=== PATIENT | male | born 1970 | race Caucasian/White ===

== ENCOUNTER 2017-06-25 15:24 | Emergency (ER) | payer SELFPAY ==
[~2017-06-25] VITALS: Ht 175.3 cm; Wt 83.9 kg
[2017-06-25] MEDS ORDERED: SODIUM CHLORIDE 0.9% 1,000 ML IV ONE (15:31)
[2017-06-25] MEDS ORDERED: ONDANSETRON HCL 4 MG/2 ML VIAL IV ONE (15:45)
[2017-06-25] MEDS ORDERED: MORPHINE SULF INJ 2 MG/ML SYRINGE 1ML IV ONE (15:45)
[2017-06-25 16:08] LABS: Basophils # (auto) 0.1 uL; Basophils % (auto) 0.8 % (0.0-2.0); CONDITION Y; Eosinophils # (auto) 0.4 uL; Eosinophils % (auto) 3.9 % (0.0-7.0); Hematocrit 43.7 % (41.0-53.0); Hemoglobin 15.2 g/dL (13.5-17.5); Lymphocytes # (auto) 3.9 uL; Lymphocytes % (auto) 41.8 % (10.0-50.0); Mean Corpuscular Hemoglobin 31.6 pg (28.0-32.0); Mean Corpuscular Hgb Conc. 34.8 g/dL (32.0-36.0); Mean Corpuscular Volume 90.7 fL (80.0-100.0); Mean Platelet Volume 7.6 fL (7.4-10.4); Monocytes # (auto) 0.5 uL; Monocytes % (auto) 5.7 % (0.0-12.0); Neutrophils # (auto) 4.5 uL; Neutrophils % (auto) 47.8 % (37.0-80.0); Platelet Count (auto) 338 10^3/uL (140-450); Red Cell Distribution Width 12.8 % (11.6-16.0); White Blood Cell 9.4 10^3/uL (4.4-10.8)
[2017-06-25] MEDS ORDERED: LIDOCAINE 1% HCL (LOCAL ANESTH.) INJ 20ML MDV ID ONE (16:15)
[2017-06-25 16:21] LABS: INR 1.19 (0.9-1.15); Partial Thromboplastin Time 30.5 sec (22.64-33.71)
[2017-06-25 16:24] LABS: Albumin 4.1 g/dL (3.4-5.0); Anion Gap 11 (5-15); Aspartate Aminotransferase 14 U/L (15-37); BUN/Creatinine Ratio 11.5; Blood Urea Nitrogen 9 mg/dL (7-18); Calcium 8.1 mg/dL (8.5-10.1); Carbon Dioxide 24 mmol/L (21-32); Chloride 112 mmol/L (98-107); GFR African American 137 mL/min; GFR Non-African American 113 mL/min; Glucose 100 mg/dL (74-106); Magnesium 2.3 mg/dL (1.6-2.6); Potassium 3.5 mmol/L (3.5-5.1); Sodium 147 mmol/L (136-145)
[2017-06-25 16:29] LABS: Alkaline Phosphatase 68 U/L (45-117); Bilirubin, Total 0.4 mg/dL (0.2-1.0); Total Protein 7.4 g/dL (6.4-8.2)
[2017-06-25] MEDS ORDERED: IOHEXOL 300 MG/ML 100ML BOTTLE IJ ONE (16:41)
[2017-06-25 18:12] VITALS: BP 91/64
== END 2017-06-25 18:25 | disposition short-term general hospital (02) ==
LOC: ER 15:27
DX: S36.90XA Unspecified injury of unspecified intra-abdominal organ, initial encounter (principal); S09.90XA Unspecified injury of head, initial encounter; S01.81XA Laceration without foreign body of other part of head, initial encounter; F17.210 Nicotine dependence, cigarettes, uncomplicated; F12.10 Cannabis abuse, uncomplicated; F10.10 Alcohol abuse, uncomplicated; W18.39XA Other fall on same level, initial encounter; Y93.89 Activity, other specified; Y92.89 Other specified places as the place of occurrence of the external cause; Y99.8 Other external cause status
CPT/HCPCS: 36415; 51702; 70450; 71260; 72125; 74177; 80053; 83735; 84484; 85025; 85610; 85730; 86850; 86900; 86901; 93005; 96361; 96374; 96375; 99291; J2001; J2270; J2405; Q9967; 94761